=== PATIENT | male | born 1955 | race Two or more races ===

== ENCOUNTER 2016-09-19 14:55 | Emergency (ER) | payer BC, OTHER ==
[~2016-09-19] VITALS: Ht 175.3 cm; Wt 76.0 kg
[~2016-09-19 14:55] MED LIST: FAMO20TA18 PO; LORA-401 PO; OLAN15TA3 PO
[2016-09-19 14:57] VITALS: Ht 175.3 cm; Wt 76.0 kg
[2016-09-19] MEDS ORDERED: SIMV40TA2 PO (16:00)
[2016-09-19] MEDS ORDERED: ASPI-664 PO (16:01)
[2016-09-19] MEDS ORDERED: CITA20TA11 PO (16:01)
[2016-09-19] MEDS ORDERED: DICLOFENAC SODIUM 37.5 MG/ML VIAL IV STA (16:01)
[2016-09-19 16:14] LABS: ADD SCAN DIFF NO
[2016-09-19 16:15] LABS: BASOPHILS % 0.3 % (0.0-2.0); EOSINOPHILS # 0.1 10^3/ul (0.0-0.5); EOSINOPHILS % 1.2 % (0.0-7.0); HEMATOCRIT 49.3 % (42.0-52.0); HEMOGLOBIN 15.8 g/dl (14.0-18.0); LYMPHOCYTES # 2.4 10^3/ul (0.8-2.9); LYMPHOCYTES % 21.6 % (15.0-51.0); MEAN CORPUSCULAR HEMOGLOBIN 30.3 pg (29.0-33.0); MEAN CORPUSCULAR VOLUME 94.6 fl (82.0-101.0); MEAN PLATELET VOLUME 10.6 fl (7.4-10.4); MONOCYTE # 0.6 10^3/ul (0.3-0.9); MONOCYTES % 5.4 % (0.0-11.0); NEUTROPHILS % 71.1 % (39.0-77.0); PLATELET COUNT 219 10^3/UL (140-415); RED BLOOD COUNT 5.21 10^6/ul (4.70-6.10); RED CELL DISTRIBUTION WIDTH 13.7 % (11.5-14.5); WHITE BLOOD COUNT 11.2 10^3/ul (4.8-10.8)
[2016-09-19 16:19] LABS: CHLORIDE 103 mmol/L (97-110)
[2016-09-19 16:20] LABS: POTASSIUM 3.9 mmol/L (3.5-5.1); SODIUM 142 mmol/L (135-144)
[2016-09-19 16:22] LABS: CREATININE 0.91 mg/dl (0.61-1.24)
--- NOTE | 2016-09-19 16:22 | RADRPT ---
PROCEDURE: XR Chest. CLINICAL INDICATION: Chest pain. TECHNIQUE: Single frontal view. COMPARISON: 08/18/2012. FINDINGS: The lungs are clear. The heart size is normal. There is no pleural effusion. There is no pneumothorax. IMPRESSION: 1. Normal chest radiograph. RPTAT: QQ .Desean Estrella MD, MD Date Time Electronically viewed and signed by .Desean Estrella MD, on 09/19/2016 16:22 .R/
[2016-09-19 16:23] LABS: ANION GAP 15 (8-16); BLOOD UREA NITROGEN 16 mg/dl (7-20); CALCIUM 9.7 mg/dl (8.4-10.2); CARBON DIOXIDE 28 mmol/L (21-31); GLUCOSE 88 mg/dl (70-220)
[2016-09-19 16:35] LABS: TROPONIN-I < 0.012 ng/ml (0.00-0.12)
[2016-09-19 16:39] VITALS: BP 101/64; PULSE 70; RESP 17
[2016-09-19] MEDS ORDERED: IBUP800T25 PO (17:15)
--- NOTE | 2016-09-19 17:21 | ERD ---
ER Documentation Chief Complaint Date/Time DATE: 09/19/16 TIME: 17:16 Chief Complaint sharp pain @ left chest area since last night HPI This is a 61-year-old male who says he worked in the yard yesterday. He said last night he developed a sharp left anterior chest wall pain located at just lateral to the midclavicular line around rib 5 or 6. He said it was very hard to sleep last night because he could not lay on his left side because of the pain in the right side would cause pain as well. He said what made it better was laying flat on his back. Did not have any breathing problems no radiation of pain no diaphoresis. He said the pain began at 1:30 AM and lasted until around 6 6 AM when he finally fell asleep. He slept for a few hours and he woke up and the pain was still there but not as bad. He said he has had the pain all day long consistently but at a mild level. Patient's risk factors for coronary artery disease are high cholesterol and smoking. Currently he says he has no pain ROS All systems reviewed and are negative except as per history of present illness. Medications Home Meds Active Scripts Ibuprofen* (Motrin*) 800 Mg Tab, 800 MG PO Q6H Y for PAIN AND OR ELEVATED TEMP, #30 TAB Prov:NICHOLAS COSTELLO DO 09/19/16 Reported Medications Citalopram Hydrobromide* (Celexa*) 20 Mg Tablet, 20 MG PO DAILY, #30 TAB 09/19/16 Aspirin (Low Dose Aspirin) 81 Mg Tablet.dr, 81 MG PO DAILY, #30 TAB 09/19/16 Simvastatin* (Zocor*) 40 Mg Tablet, 40 MG PO QHS, #30 TAB 09/19/16 Olanzapine* (Zyprexa*) 15 Mg Tablet, 15 MG PO DAILY 08/19/12 Discontinued Reported Medications Famotidine* (Famotidine*) 20 Mg Tablet, 20 MG PO BID 08/19/12 Lorazepam* (Ativan*) 1 Mg Tablet, 1 MG PO BID 08/19/12 Allergies Allergies: Coded Allergies: No Known Allergy (Unverified , 09/19/16) PMhx/Soc Medical and Surgical Hx: pt denies Medical Hx, pt denies Surgical Hx History of Surgery: No Anesthesia Reaction: No Hx Neurological Disorder: No Hx Respiratory Disorders: No Hx Cardiac Disorders: No Hx Psychiatric Problems: No Hx Miscellaneous Medical Probl: No Hx Alcohol Use: No Hx Substance Use: No Hx Tobacco Use: Yes Smoking Status: Current every day smoker FmHx Family History: No coronary disease Physical Exam Vitals Vital Signs Date Time Temp Pulse Resp B/P Pulse Ox O2 Delivery O2 Flow Rate FiO2 09/19/16 16:39 70 17 101/64 98 Room Air 09/19/16 15:40 77 16 117/75 97 Room Air 09/19/16 14:57 98.1 83 18 111/74 98 Physical Exam Const: [Well-developed, well-nourished] Head: [Atraumatic, normocephalic] Eyes: [Normal Conjunctiva, PERRLA, EOMI, normal sclera, no nystagmus] ENT: [Normal External Ears, Nose and Mouth, moist mucus membranes.] Neck: [Full range of motion. No meningismus, no lymphadenopathy.] Resp: [Clear to auscultation bilaterally, no wheezing, rhonchi, rales] Cardio: [Regular rate and rhythm, no murmurs, S1 S2 present, there is complete reproducible chest pain to palpation at rib #5 just lateral to the midclavicular line. Palpation of this is quite sensitive and he says it is the same pain.] Abd: [Soft, non tender x 4, non distended. Normal bowel sounds, no guarding or rebound, no pulsitile abdominal masses or bruits] Skin: [No petechiae or rashes, no ecchymosis , no maculopapular rash] Back: [No midline or flank tenderness] Ext: [No cyanosis, or edema, FROM x 4, normal inspection, neurovascularly intact x 4] Neur: [Awake and alert, STR 5/5 x 4, sensation intact x 4, no focal findings, cerebellum intact] Psych: [Normal Mood and Affect] Result Diagram: 09/19/16 1600 09/19/16 1600 Results 24 hrs Laboratory Tests Test 09/19/16 16:00 White Blood Count 11.210^3/ul Red Blood Count 5.2110^6/ul Hemoglobin 15.8g/dl Hematocrit 49.3% Mean Corpuscular Volume 94.6fl Mean Corpuscular Hemoglobin 30.3pg Mean Corpuscular Hemoglobin Concent 32.0g/dl Red Cell Distribution Width 13.7% Platelet Count 44107^3/UL Mean Platelet Volume 10.6fl Neutrophils % 71.1% Lymphocytes % 21.6% Monocytes % 5.4% Eosinophils % 1.2% Basophils % 0.3% Nucleated Red Blood Cells % 0.0/100WBC Neutrophils # 8.010^3/ul Lymphocytes # 2.410^3/ul Monocytes # 0.610^3/ul Eosinophils # 0.110^3/ul Basophils # 0.010^3/ul Nucleated Red Blood Cells # 0.010^3/ul Sodium Level 142mmol/L Potassium Level 3.9mmol/L Chloride Level 103mmol/L Carbon Dioxide Level 28mmol/L Anion Gap 15 Blood Urea Nitrogen 16mg/dl Creatinine 0.91mg/dl Glucose Level 88mg/dl Calcium Level 9.7mg/dl Troponin I < 0.012ng/ml Current Medications Medications (Trade) Dose Ordered Sig/Jovani Route PRN Reason Start Time Stop Time Status Last Admin Dose Admin Diclofenac Sodium (Dyloject) 37.5 mg ONCE STAT IV 09/19/16 16:01 09/19/16 16:02 DC 09/19/16 16:18 Procedures/MDM EKG: Rate/Rhythm: [Normal Sinus Rhythm,NL intervals] QRS, ST, QT: NORMAL MA, QRS, QT] Impression: [NORMAL EKG] PROCEDURE: XR Chest. CLINICAL INDICATION: Chest pain. TECHNIQUE: Single frontal view. COMPARISON: 08/18/2012. FINDINGS: The lungs are clear. The heart size is normal. There is no pleural effusion. There is no pneumothorax. IMPRESSION: 1. Normal chest radiograph. RPTAT: QQ .Desean Estrella MD, MD Date Time Electronically viewed and signed by .Desean Estrella MD, on 09/19/2016 16:22 .R/ CC: NICHOLAS COSTELLO DO The patient's chest pain sounds clinically like chest wall pain. Patient worked in the yard yesterday and he is having some positional chest pain with worsening on his sides and better on his back. Same pain is reproducible with palpation. His cardiac workup is negative. According to the patient's history he had consistent chest pain for at least 12 hours with no elevation of troponin. Gave him strict cardiac warning signs to return in follow-up with his PCP Departure Diagnosis: Primary Impression: Chest wall pain Condition: Stable Patient Instructions: Chest Wall Strain NICHOLAS COSTELLO DO September 19, 2016 17:21
== END 2016-09-19 17:41 | disposition home or self-care (01) ==
LOC: E/R 14:55
DX: R07.89 Other chest pain (principal); R40.2252 Coma scale, best verbal response, oriented, at arrival to emergency department; F17.210 Nicotine dependence, cigarettes, uncomplicated; R40.2142 Coma scale, eyes open, spontaneous, at arrival to emergency department; R40.2362 Coma scale, best motor response, obeys commands, at arrival to emergency department; Z79.82 Long term (current) use of aspirin
CPT/HCPCS: 36415; 71010; 80048; 84484; 85025; 93005; 96374; Z7502; Z7610

== ENCOUNTER 2016-10-15 12:00 | Day surgery (SDC) | payer BC ==
[~2016-10-15] VITALS: Ht 172.7 cm; Wt 74.7 kg
[~2016-10-15 12:00] MED LIST changes: +ASPI-664 PO; +CITA20TA11 PO; -FAMO20TA18 PO; +IBUP800T25 PO; -LORA-401 PO; +SIMV40TA2 PO
[2016-10-15 12:33] VITALS: Ht 172.7 cm; Wt 74.7 kg
[2016-10-15 13:27] VITALS: BP 108/68; PULSE 78; RESP 18
[2016-10-15 15:45] VITALS: BP 111/76; PULSE 71; RESP 15
--- NOTE | 2016-10-15 16:37 | GILP ---
DATE OF PROCEDURE: 10/15/2016 PROCEDURE: 1. Colonoscopy with snare polypectomy. 2. Colonoscopy with biopsies and localization tattoo, 3. Colonoscopy with polyp ablation. PREMEDICATION: Monitored anesthesia care by anesthesiologist. SURGEON: Nicole Yeager MD. INSTRUMENT USED: Olympus colonoscope. PREPARATION: Adequate. TECHNIQUE: After informed consent, with the patient/relatives understanding the procedure, its indic ations potential risks and complications, including but not limited to: allergic reaction, bleeding, perforation, infection, missed lesions and after all pertinent questions were answered to the patie nt's satisfaction, the patient/relatives signed the witnessed informed consent. Following this, premedication was administered slowly IV push by under careful cardiovascular and re spiratory monitoring with pulse oximetry, automatic blood pressure and statement request clerk. Once the sedativ e effect was achieved, the patient was placed in the left lateral decubitus position, digital rectal examination was performed. The colonoscope was then introduced and advanced under visual control th roughout all segments of the colon including: the rectum, sigmoid, descending colon, splenic flexure , transverse colon, hepatic flexure, ascending colon and finally reaching the cecum which was clearl y identified by transillumination, finger indentation and the ileocecal valve. Careful examination o f the mucosa of the lower gastrointestinal tract both on insertion as well as withdrawal of the inst rument disclosed the following findings: Rectal Examination: No evidence of perirectal disease, no masses. Colonic Mucosa: Colonic Mucosa: The colonic mucosa is remarkable for multiple polyps in following o rder: A 3 mm polyp was noted in the rectum which was ablated with biopsy forceps. A 6 mm polyp was noted in the proximal ascending colon, was snared and retrieved. A 15 mm sessile polyp was noted in the proximal ascending colon, was judged to be not endoscopically removable. Bio psies were obtained and localization tattoo was applied. A 6 mm descending colon polyp was snared and retrieved and a 6 mm polyp in the rectum was snare and retrieved. Moderate size internal hemorrhoids are noted on withdrawal of the instrument. No additi onal abnormalities are noted. IMPRESSION: 1. A 3 mm rectal polyp, ablated. 2. A 6 mm proximal ascending colon polyp snared and retrieved. A 15 mm sessile polyp not endoscopi karma resectable in the proximal ascending colon, biopsied and localization tattoo applied. 3. A 6 mm polyp in the descending colon, snared and retrieved. 4. A 6 mm polyp in the rectum snared and retrieved. 5. Moderate sized internal hemorrhoids. PLAN: The patient will follow up as an outpatient. Pathology will be reviewed as soon as available . Unfortunately, the larger polyp in the proximal ascending colon will likely require surgical exci lourdes once adenomatous nature is confirmed. The patient should also have repeat colonoscopy within a year, given the number of polyps encountered today. Dictated By: NICOLE YEAGER MS/[place] Conf#: [id number] DID#: [id number] CC: NICOLE YEAGER;*EndCC*
[2016-10-16] MEDS ORDERED: OLAN10TA7 PO (00:21)
== END 2016-10-15 15:57 | disposition home or self-care (01) ==
LOC: GIL 12:00
PROVIDERS: ATTEND Internal Medicine Gastroenterology
DX: Z12.11 Encounter for screening for malignant neoplasm of colon (principal); D12.2 Benign neoplasm of ascending colon; D12.4 Benign neoplasm of descending colon; K62.1 Rectal polyp; F32.9 Major depressive disorder, single episode, unspecified
CPT/HCPCS: 45380; 45381; 45385; 88305; Z7610

== ENCOUNTER 2016-10-15 22:12 | Inpatient (IN) | payer BC ==
[~2016-10-15] VITALS: Ht 167.6 cm; Wt 82.9 kg
[2016-10-15] MEDS ORDERED: SODIUM CHLORIDE 0.9% 1L BAG IV* STA (23:08)
[2016-10-15 23:52] LABS: ADD SCAN DIFF NO
[2016-10-15 23:53] LABS: BASOPHILS % 0.2 % (0.0-2.0); EOSINOPHILS % 0.1 % (0.0-7.0); HEMATOCRIT 43.3 % (42.0-52.0); HEMOGLOBIN 14.8 g/dl (14.0-18.0); LYMPHOCYTES # 1.7 10^3/ul (0.8-2.9); LYMPHOCYTES % 9.2 % (15.0-51.0); MEAN CORPUSCULAR HEMOGLOBIN 30.7 pg (29.0-33.0); MEAN CORPUSCULAR HGB CONC 34.2 g/dl (32.0-37.0); MEAN CORPUSCULAR VOLUME 89.8 fl (82.0-101.0); MEAN PLATELET VOLUME 10.3 fl (7.4-10.4); MONOCYTE # 1.2 10^3/ul (0.3-0.9); MONOCYTES % 6.4 % (0.0-11.0); NEUTROPHIL # 15.3 10^3/ul (1.6-7.5); NEUTROPHILS % 83.5 % (39.0-77.0); PLATELET COUNT 246 10^3/UL (140-415); RED BLOOD COUNT 4.82 10^6/ul (4.70-6.10); RED CELL DISTRIBUTION WIDTH 13.2 % (11.5-14.5); WHITE BLOOD COUNT 18.3 10^3/ul (4.8-10.8)
[2016-10-16] VITALS (8 sets, daily range): BP systolic 84–104; BP diastolic 50–58; PULSE 63–77; RESP 18–20; TEMP 98.1; Ht 167.6 cm; Wt 82.9 kg
--- NOTE | 2016-10-16 00:02 | RADRPT ---
PROCEDURE: XR Chest. CLINICAL INDICATION: Sepsis. TECHNIQUE: Single frontal chest x-ray. COMPARISON: 09/19/2016 FINDINGS: The cardiomediastinal silhouette is unremarkable. There is no congestive heart failure.. No focal i nfiltrate is seen. There is no pleural effusion. There is no pneumothorax. There are degenerative changes of the thoracic spine.. IMPRESSION: 1. No active disease. RPTAT: HMVK .Jarvis Castro MD, MD Date Time Electronically viewed and signed by .Jarvis Castro MD, on 10/16/2016 00:02 .K/
[2016-10-16 00:09] LABS: INR 0.98
[2016-10-16 00:10] LABS: PARTIAL THROMBOPLASTIN TIME 35.7 Sec (25.0-35.0)
[2016-10-16 00:14] LABS: ALANINE AMINOTRANSFERASE 32 IU/L (13-69); ALBUMIN 4.6 g/dl (3.3-4.9); ALBUMIN/GLOBULIN RATIO 1.58; ALKALINE PHOSPHATASE 89 IU/L (42-121); ANION GAP 14 (8-16); ASPARTATE AMINO TRANSFERASE 25 IU/L (15-46); BILIRUBIN,INDIRECT 0.6 mg/dl (0-1.1); BILIRUBIN,TOTAL 0.6 mg/dl (0.2-1.3); BLOOD UREA NITROGEN 14 mg/dl (7-20); CALCIUM 9.2 mg/dl (8.4-10.2); CARBON DIOXIDE 22 mmol/L (21-31); CHLORIDE 104 mmol/L (97-110); CREATININE 0.91 mg/dl (0.61-1.24); GLUCOSE 107 mg/dl (70-220); POTASSIUM 3.9 mmol/L (3.5-5.1); SODIUM 136 mmol/L (135-144); TOTAL PROTEIN 7.5 g/dl (6.1-8.1)
[2016-10-16] MEDS ORDERED: OLAN10TA7 PO (00:21)
[2016-10-16 00:27] LABS: TROPONIN-I < 0.012 ng/ml (0.00-0.12)
[2016-10-16] MEDS ORDERED: SOD CHLORIDE 0.9% 100 ML ONE (00:46)
[2016-10-16] MEDS ORDERED: IOHEXOL 300MG/ML 150 ML BTL ONE (00:46)
--- NOTE | 2016-10-16 01:18 | RADRPT ---
PROCEDURE: CT Abdomen and pelvis with contrast. CLINICAL INDICATION: Abdominal pain. TECHNIQUE: CT scan of the abdomen and pelvis with contrast was performed on a multi-detector high -resolution CT scanner. The patient was scanned following the uncomplicated administration of 120 c c of Omnipaque 300 intravenous contrast. Coronal and sagittal reformatted images were obtained from the axial source images. Images were reviewed on a high-resolution PACS workstation. One or more of the following dose reduction techniques were used: - Automated exposure control. - Adjustment of the mA and/or kV according to patient size. - Use of iterative reconstruction technique. Exam CTD/vol = 10.04 mGy. Total exam DLP = 623.88 mGy-cm. COMPARISON: None. FINDINGS: Evaluation of the lung bases demonstrates mild bibasilar atelectasis. Abdomen: The liver is normal in size. There is no focal mass or dilatation of the biliary tree. T he gallbladder is not distended. The spleen, pancreas and bilateral adrenal glands are within felicia l limits. Bilateral kidneys are normal in size with symmetric enhancement. There are bilateral liang al cysts. There is minimal hydronephrosis bilaterally. There is no retroperitoneal adenopathy. Th e abdominal aorta is of normal caliber with scattered atherosclerotic calcifications. There is no abnormal bowel wall thickening or distension. There is no bowel obstruction or free air . A normal appendix is identified. There is no diverticulosis or diverticulitis. There is no asci gissel. Pelvis: The bladder is moderately distended and demonstrates mild wall thickening. The prostate an d seminal vesicles are within normal limits. There is no significant pelvic adenopathy or free flui d. Evaluation of the osseous structures demonstrates no suspicious lytic or blastic lesion. IMPRESSION: Moderately distended bladder and minimal bilateral hydronephrosis. Mild bladder wall thickening could suggest cystitis. Clinical correlation is needed. Mild bibasilar atelectasis. Vascular calcifications reflective of atherosclerosis. .Darion Ugarte MD, MD Date Time Electronically viewed and signed by .Darion Ugarte MD, MD on 10/16/2016 01:18 .T/
[2016-10-16 01:24] LABS: ADD UMIC NO; URINE BILIRUBIN (Dip) NEGATIVE (NEGATIVE); URINE BLOOD (Dip) NEGATIVE (NEGATIVE); URINE COLOR LT. YELLOW (YELLOW); URINE GLUCOSE (Dip) NEGATIVE (NEGATIVE); URINE KETONES (Dip) NEGATIVE (NEGATIVE); URINE LEUKOCYTE ESTERASE (Dip) NEGATIVE (NEGATIVE); URINE NITRITE (Dip) NEGATIVE (NEGATIVE); URINE TOTAL PROTEIN (Dip) NEGATIVE (NEGATIVE); URINE UROBILINOGEN (Dip) 0.2 E.U./dL (0.1-1.0)
[2016-10-16] MEDS ORDERED: CEFTRIAXONE 1 GM/50 ML (PMX) 50 ML IVPB ONE (02:00)
[2016-10-16] MEDS: SOD CHLORIDE 0.9% 1,000 ML IV SCH ×4 (02:09→15:45)
--- NOTE | 2016-10-16 02:12 | ERA ---
ER Documentation Chief Complaint Date/Time DATE: 10/16/16 TIME: 02:09 Chief Complaint FEVER BEGAN AT 6PM, COLONOSCOPY DONE TODAY, PRIMARY STATED FEVER COME TO ER HPI This is a 61-year-old male who presents to the emergency room for evaluation of a fever. The patient states that he did have a colonoscopy done today by Dr. roach and states that he was told to come to the emergency room if he developed fever. He states that around 6 PM tonight he developed fever and chills and some abdominal pain in the lower portion of the abdomen. The patient denies any bleeding from the rectum and came to the emergency room for further evaluation. The patient denies any radiation of the pain and denies any aggravating or relieving factors for his pain ROS All systems reviewed and are negative except as per history of present illness. Medications Home Meds Reported Medications Olanzapine* (Zyprexa*) 10 Mg Tablet, 10 MG PO DAILY, #30 TAB 10/16/16 Discontinued Reported Medications Citalopram Hydrobromide* (Celexa*) 20 Mg Tablet, 20 MG PO DAILY, #30 TAB 09/19/16 Aspirin (Low Dose Aspirin) 81 Mg Tablet.dr, 81 MG PO DAILY, #30 TAB 09/19/16 Simvastatin* (Zocor*) 40 Mg Tablet, 40 MG PO QHS, #30 TAB 09/19/16 Olanzapine* (Zyprexa*) 15 Mg Tablet, 15 MG PO DAILY 08/19/12 Discontinued Scripts Ibuprofen* (Motrin*) 800 Mg Tab, 800 MG PO Q6H Y for PAIN AND OR ELEVATED TEMP, #30 TAB Prov:NICHOLAS COSTELLO DO 09/19/16 Allergies Allergies: Coded Allergies: No Known Allergy (Unverified , 10/16/16) PMhx/Soc History of Surgery: No Anesthesia Reaction: No Hx Neurological Disorder: No Hx Respiratory Disorders: No Hx Cardiac Disorders: Yes (HIGH CHOL) Hx Psychiatric Problems: Yes (DEPRESSION) Hx Miscellaneous Medical Probl: No Hx Alcohol Use: No Hx Substance Use: No Hx Tobacco Use: Yes (INFREQ) Smoking Status: Current every day smoker Physical Exam Vitals Vital Signs Date Time Temp Pulse Resp B/P Pulse Ox O2 Delivery O2 Flow Rate FiO2 10/16/16 01:21 85 17 101/63 98 Room Air 10/15/16 23:38 99.9 87 17 103/68 100 Room Air 10/15/16 22:55 100.6 109 18 83/50 94 Physical Exam INITIAL VITAL SIGNS: Reviewed by me GENERAL: The patient is well developed and appropriate for usual state of health in no apparent distress HEENT: Pupils equal, round, and reactive to light. EOMI. There is no scleral icterus. NECK: C-spine is soft and supple, there is no meningismus. There is no cervical lymphadenopathy. LUNGS: Clear to auscultation bilaterally. There are no rales, wheezes or rhonchi. HEART: Tachycardic no murmurs, clicks, rubs or gallops. ABDOMEN: Mild suprapubic tenderness to palpation, soft, non-tender, non- distended. There are bowel sounds in all four quadrants. No rebound or guarding. EXTREMITIES: There is no peripheral cyanosis or edema. No focal swelling or erythema. NEUROLOGICAL: The patient moves all four extremities with 5/5 strength. Cranial nerves II - XII are intact. Normal gait. Alert and oriented SKIN: There is no apparent rash or petechiae. HEME/LYMPHATIC: There is no evidence of excessive bruising or lymphedema. PSYCHIATRIC: The patient does not appear anxious or depressed. Result Diagram: 10/15/16232410/15/162324 Results 24 hrs Laboratory Tests Test 10/15/16 23:25 10/15/16 23:55 White Blood Count 18.310^3/ul Red Blood Count 4.8210^6/ul Hemoglobin 14.8g/dl Hematocrit 43.3% Mean Corpuscular Volume 89.8fl Mean Corpuscular Hemoglobin 30.7pg Mean Corpuscular Hemoglobin Concent 34.2g/dl Red Cell Distribution Width 13.2% Platelet Count 02125^3/UL Mean Platelet Volume 10.3fl Neutrophils % 83.5% Lymphocytes % 9.2% Monocytes % 6.4% Eosinophils % 0.1% Basophils % 0.2% Nucleated Red Blood Cells % 0.0/100WBC Neutrophils # 15.310^3/ul Lymphocytes # 1.710^3/ul Monocytes # 1.210^3/ul Eosinophils # 0.010^3/ul Basophils # 0.010^3/ul Nucleated Red Blood Cells # 0.010^3/ul Prothrombin Time 13.0Sec Prothrombin Time Ratio 1.0 INR International Normalized Ratio 0.98 Activated Partial Thromboplast Time 35.7Sec Sodium Level 136mmol/L Potassium Level 3.9mmol/L Chloride Level 104mmol/L Carbon Dioxide Level 22mmol/L Anion Gap 14 Blood Urea Nitrogen 14mg/dl Creatinine 0.91mg/dl Glucose Level 107mg/dl Lactic Acid Level 1.0mmol/L Calcium Level 9.2mg/dl Total Bilirubin 0.6mg/dl Direct Bilirubin 0.00mg/dl Indirect Bilirubin 0.6mg/dl Aspartate Amino Transf (AST/SGOT) 25IU/L Alanine Aminotransferase (ALT/SGPT) 32IU/L Alkaline Phosphatase 89IU/L Troponin I < 0.012ng/ml Total Protein 7.5g/dl Albumin 4.6g/dl Globulin 2.90g/dl Albumin/Globulin Ratio 1.58 Urine Color LT. YELLOW Urine Clarity CLEAR Urine pH 6.0 Urine Specific [place] <=1.005 Urine Ketones NEGATIVE Urine Nitrite NEGATIVE Urine Bilirubin NEGATIVE Urine Urobilinogen 0.2 E.U./dL Urine Leukocyte Esterase NEGATIVE Urine Hemoglobin NEGATIVE Urine Glucose NEGATIVE% Urine Total Protein NEGATIVE Current Medications Medications (Trade) Dose Ordered Sig/Jovani Route PRN Reason Start Time Stop Time Status Last Admin Dose Admin Sodium Chloride (NS) 2,310 ml BOLUS OVER 2 HOURS STAT IV* 10/15/16 23:08 10/15/16 23:10 DC 10/15/16 23:37 IV Flush 10 ml 10 ml STK-MED ONCE .ROUTE 10/16/16 00:46 10/16/16 00:47 DC 10/16/16 01:00 Sodium Chloride (NS) 100 ml @ ud STK-MED ONCE .ROUTE 10/16/16 00:46 10/16/16 00:47 DC 10/16/16 01:00 Iohexol 150 ml 150 ml STK-MED ONCE .ROUTE 10/16/16 00:46 10/16/16 00:47 DC 10/16/16 01:00 Ceftriaxone Sodium 50 ml @ 100 mls/hr ONCE ONCE IVPB 10/16/16 02:00 10/16/16 02:29 Sodium Chloride (NS) 1,000 ml @ 80 mls/hr [id number] IV 10/16/16 02:03 10/16/16 14:32 Ondansetron HCl (Zofran Inj) 4 mg BRIDGE ORDER PRN IV NAUSEA AND/OR VOMITING 10/16/16 02:30 10/17/16 02:29 Acetaminophen (Tylenol Tab) 650 mg ER BRIDGE PRN PO MILD PAIN/FEVER 10/16/16 02:30 10/17/16 02:29 Procedures/MDM EKG: Rate/Rhythm: [Normal Sinus Rhythm] QRS, ST, T-waves: [No changes consistent w/ acute ischemia] Impression: [No evidence of ischemia or arrhythmia] Chest X-ray 1V Interpreted by me: Soft Tissue: No acute abnormalities Bones: No acute abnormalities Mediastinum/Cardiac Silhouette/Lungs: [No acute abnormalities] CT abdomen pelvis without: Moderately distended bladder and minimal bilateral hydronephrosis. Mild bladder wall thickening could suggest cystitis. Clinical correlation is needed. Mild bibasilar atelectasis. Vascular calcifications reflective of atherosclerosis. This 61-year-old male presents to the emergency room for evaluation of fever. This patient did have a colonoscopy done today by Dr. roach. When I evaluated him he was febrile tachycardic. A septic workup was started and the patient did undergo a CAT scan which revealed mild bladder wall thickening suggesting cystitis. He did have some suprapubic tenderness to palpation on my examination. Although his urinalysis does not reveal any white blood cells at this time the patient was given Rocephin, and urine culture was obtained. The patient will be placed in for admission at this time for evaluation and she does meet sepsis criteria. He was given 30 cc/kg of IV normal saline and no need for vasopressors as his mean arterial pressures greater than 65. This patient will be placed in for admission under the care of Dr. kenyon on [facility] floor at this time. Critical Care: Time: 38 minutes Treatments/Evaluations: Close monitoring and treatment of unstable vital signs, cardiorespiratory, and neurologic status, while maintaining tight balance of fluid, respiratory, and cardiac interventions. Smoking Cessation Therapy: Pt. was lectured for greater than 3 minutes on the health risks of continued smoking and the benefits of cessation. Departure Diagnosis: Primary Impression: Sepsis Additional Impressions: Cystitis Tobacco use Condition: Stable AUBRIE FIGUEROA DO Oct 16, 2016 02:12
[2016-10-16] MEDS ORDERED: ACETAMINOPHEN 500 MG TAB PO ONE (02:14)
[2016-10-16] MEDS ORDERED: ACETAMINOPHEN 325 MG TAB PO PRN ×2 (02:30→05:30)
[2016-10-16] MEDS ORDERED: ONDANSETRON 4 MG INJ IV PRN ×2 (02:30→05:30)
[2016-10-16] MEDS ORDERED: morphine 2 MG INJ IV PRN (05:30)
[2016-10-16] MEDS: PANTOPRAZOLE (EC) 40 MG TAB PO SCH (05:48)
[2016-10-16] MEDS: PIPER-TAZO 3.375 GM IV (PMX) 100 ML IVPB SCH ×4 (05:48→23:56)
--- NOTE | 2016-10-16 10:06 | HP ---
DATE OF ADMISSION: 10/16/2016 CHIEF COMPLAINT: Fever. HISTORY OF PRESENT ILLNESS: The patient is a 61-year-old gentleman with a history of anxiety and de pression, for which he has been taking Zyprexa. The details of his psychiatric condition are not kn own. Patient also used to take medication for cholesterol, but he has not been taking it for 1 austin h. The patient was seen by Dr. Yeager for screening colonoscopy yesterday and underwent multiple po lypectomies. The patient was sent home; however, the patient returned to ER with a fever. No recta l bleed, no reported dysuria or hematuria. No reported abdominal pain. No reported headache, dizzi ness or syncope. No history of chest pain or shortness of breath. The patient did have fever and c hills prior to coming to the hospital. In the ER he did report some abdominal discomfort in the low er portion, although currently he is pain free. Since morning the patient has not had any temperatu re spikes, although he did drop his blood pressure into the 80s. The patient is getting IV fluids. The patient remains awake, alert, and had normal renal function upon arrival. Multiple lactic acid levels were normal; however, due to a white count of 18.3, the patient was admitted for further bridgett luation and management. REVIEW OF SYSTEMS: The rest of review of systems is unremarkable. PAST SURGICAL HISTORY: None. ALLERGIES: NONE. SOCIAL HISTORY: The patient smokes a pack per day. No history of alcohol abuse. FAMILY HISTORY: Noncontributory. PHYSICAL EXAMINATION: GENERAL: The patient is conscious, awake, alert. VITAL SIGNS: In the ER temperature of 100.6, pulse 109, respirations 18, blood pressure 83/50, O2 saturation 94% on room air. HEENT: Conjunctivae and lids are normal. Oropharynx is clear. NECK: Supple. No mass, no thyromegaly. CHEST: Fairly clear. CARDIOVASCULAR: S1, S2 normal. No murmur. ABDOMEN: Soft, nondistended, nontender. Bowel sounds present. EXTREMITIES: No leg edema. NEUROLOGIC: The patient is awake, alert, fairly oriented, with no gross focal deficits. LABORATORY: WBC 18.3, hemoglobin 14.8, platelets 246. Sodium 136, potassium 3.9, BUN 14, creatinin e 0.9. Liver enzymes normal. The patient did undergo a CT of the abdomen and pelvis, which revealed a moderately distended bladde r and minimal bilateral hydronephrosis. Mild bladder wall thickening, could suggest cystitis, altho ugh UA is unremarkable. Vascular calcifications reflective of arthrosclerosis. IMPRESSION: 1. Fever after colonoscopy. 2. History of anxiety and depression. 3. History of dyslipidemia. PLAN: Patient is admitted on the medical floor. The patient will be started on IV Zosyn for sympto matic treatment. Will use Lovenox for DVT prophylaxis and Protonix for GI prophylaxis. Will notify Dr. Yeager. Will obtain followup labs. Continue IV fluids. Plan of care discussed with the patie nt's son. Dictated By: TIMMY FAROOQ/[place] Conf#: [id number] DID#: [id number]
[2016-10-16] MEDS: ENOXAPARIN 40 MG/0.4 ML SYG SC SCH (10:13)
[2016-10-16] MEDS ORDERED: OLANZAPINE 5 MG TAB PO SCH (10:30)
[2016-10-16] MEDS ORDERED: metroNIDAZOLE 500 MG/NS (PMX) 100 ML IVPB SCH (14:00)
--- NOTE | 2016-10-16 16:33 | CONS ---
Date/Time of Note Date/Time of Note DATE: 10/16/16 TIME: 16:23 Assessment/Plan Assessment/Plan Additional Assessment/Plan Assessment: Fever post colonoscopy/no evidence of colonic pathology Rule out bacteremia related to procedure Rule out urinary tract infection Leukocytosis/likely related to above Thickened bladder and mild hydronephrosis on CT Consider urology evaluation History of anxiety/depression/psychiatric illness Plan: Continue present regimen Consider urology evaluation Await cultures Consultation Date/Type/Reason Admit Date/Time Oct 16, 2016 at 02:04 Date of Consultation: Oct 16, 2016 Type of Consultation: GI Reason for Consultation Fever post colonoscopy Hx of Present Illness 61-year-old male who was evaluated yesterday 10/15/2016 with screening colonoscopy was found to have 5 relatively small polyps largest 6 mm were removed and one additional larger polyp approximately 15 mm that was biopsied localization to tube was applied. The patient was discharge in good condition with no symptoms whatsoever. I received a call around 9:30 PM last night from the patient's son stating that his father had temperature 102, he had no significant abdominal pain or any other gastrointestinal symptomatology. In view of the recent colonoscopy advised for him to be taken urgently to the emergency room for further evaluation. The patient was seen in the emergency room was found to have significant leukocytosis and fever, a CT of the abdomen disclosed no evidence of free air or any abnormalities that may represent complication of a colonoscopy. The bladder appeared to be thickened with slight hydronephrosis raise the question of cystitis, urinalysis however was negative. The patient was started on antibiotics and hospitalized. This morning the patient appears comfortable again denies any gastrointestinal symptoms, he is tolerating a full regular diet without difficulties. He is fever has subsided he has remained somewhat hypotensive but he is alert, oriented and not lightheaded or symptomatic at all. Patient states his blood pressure tends to be low but not this low. I again spoke with the patient's son and explained the possibility of bacteremia related to colonoscopy which is a very unusual circumstance but one that may be responsible for the patient's presentation, alternatively a urinary tract process may be considered as well. At any rate the patient appears to be responded to antibiotics and I would recommend we continue present regimen. The pathology of the polyps removed is pending at this time. Constitutional: improved, no complaints Eyes: no complaints ENT: no complaints Respiratory: no complaints Cardiovascular: no complaints Gastrointestinal: no complaints Genitourinary: no complaints Musculoskeletal: no complaints Skin: no complaints Neurologic: no complaints Endocrine: no complaints Lymphatic: no complaints Psychological: nl mood/affect, no complaints Immunologic: no complaints Past Medical History Medical History: other (Anxiety/depression/psychiatric illness) Past Surgical History Past Surgical Hx: no surgical history Family History Significant Family History: no pertinent family hx Social History Alcohol Use: rarely Smoking Status: Former smoker Drug Use: none Exam/Review of Systems Vital Signs Vitals Vital Signs Date Time Temp Pulse Resp B/P Pulse Ox O2 Delivery O2 Flow Rate FiO2 10/16/16 15:06 70 94/55 10/16/16 08:29 97.7 20 95 10/16/16 03:13 Room Air Intake and Output 10/15/16 10/15/16 10/16/16 15:00 23:00 07:00 Intake Total 450 ml Balance 450 ml Exam Constitutional: alert, oriented, well developed Psych: nl mood/affect, no complaints Head: atraumatic, normocephalic Eyes: EOMI, PERRL, nl conjunctiva, nl lids, nl sclera ENMT: nl external ears & nose, nl lips & teeth, nl nasal mucosa & septum Neck: non-tender, supple Respiratory: clear to auscultation, normal air movement Cardiovascular: nl pulses, regular rate and rhythm Gastrointestinal: nl liver, spleen, non-tender, soft Musculoskeletal: nl extremities to inspection Extremities: normal pulses Skin: nl turgor, No rash or lesions Lymph: nl lymph nodes Results Result Diagram: 10/15/16 4892 10/15/16 2325 Results 24 hrs Laboratory Tests Test 10/15/16 23:25 10/15/16 23:55 10/16/16 01:50 10/16/16 05:05 White Blood Count 18.3 #H Red Blood Count 4.82 Hemoglobin 14.8 Hematocrit 43.3 Mean Corpuscular Volume 89.8 Mean Corpuscular Hemoglobin 30.7 Mean Corpuscular Hemoglobin Concent 34.2 Red Cell Distribution Width 13.2 Platelet Count 246 Mean Platelet Volume 10.3 Neutrophils % 83.5 H Lymphocytes % 9.2 L Monocytes % 6.4 Eosinophils % 0.1 Basophils % 0.2 Nucleated Red Blood Cells % 0.0 Neutrophils # 15.3 H Lymphocytes # 1.7 Monocytes # 1.2 H Eosinophils # 0.0 Basophils # 0.0 Nucleated Red Blood Cells # 0.0 Prothrombin Time 13.0 Prothrombin Time Ratio 1.0 INR International Normalized Ratio 0.98 Activated Partial Thromboplast Time 35.7 H Sodium Level 136 Potassium Level 3.9 Chloride Level 104 Carbon Dioxide Level 22 Anion Gap 14 Blood Urea Nitrogen 14 Creatinine 0.91 Glucose Level 107 Lactic Acid Level 1.0 0.8 1.9 Calcium Level 9.2 Total Bilirubin 0.6 Direct Bilirubin 0.00 Indirect Bilirubin 0.6 Aspartate Amino Transf (AST/SGOT) 25 Alanine Aminotransferase (ALT/SGPT) 32 Alkaline Phosphatase 89 Troponin I < 0.012 Total Protein 7.5 Albumin 4.6 Globulin 2.90 Albumin/Globulin Ratio 1.58 Urine Color LT. YELLOW Urine Clarity CLEAR Urine pH 6.0 Urine Specific Buckner <=1.005 L Urine Ketones NEGATIVE Urine Nitrite NEGATIVE Urine Bilirubin NEGATIVE Urine Urobilinogen 0.2 E.U./dL Urine Leukocyte Esterase NEGATIVE Urine Hemoglobin NEGATIVE Urine Glucose NEGATIVE Urine Total Protein NEGATIVE Medications Medications Current Medications Piperacillin Sod/ Tazobactam Sod (Zosyn 3.375gm/ 100 ml (Pmx)) 100 ml @ 200 mls /hr Q6 IVPB Last administered on 10/16/16 11:45; Admin Dose 200 MLS/HR; Start 10/16/16 at 06:00 Enoxaparin Sodium (Lovenox) 40 mg DAILY SC Last administered on 10/16/16 10:13 ; Admin Dose 40 MG; Start 10/16/16 at 09:00 Ondansetron HCl (Zofran Inj) 4 mg Q6H PRN IV NAUSEA AND/OR VOMITING; Start 10/16 at 05:30 Morphine Sulfate (morphine) 2 mg Q4H PRN IV PAIN; Start 10/16/16 at 05:30 Acetaminophen (Tylenol Tab) 650 mg Q6H PRN PO PAIN AND OR ELEVATED TEMP; Start 10/16/16 at 05:30 Pantoprazole 40 mg 40 mg DAILY@06 PO Last administered on 10/16/16 05:48; Admin Dose 40 MG; Start 10/16/16 at 06:00 Sodium Chloride (NS) 1,000 ml @ 100 mls/hr Q10H IV Last administered on 15:45; Admin Dose 100 MLS/HR; Start 10/16/16 at 05:30 Olanzapine (Zyprexa) 10 mg HS PO ; Start 10/16/16 at 21:00 ANNIE VALLE MD Oct 16, 2016 16:33
[2016-10-16] MEDS: OLANZAPINE 5 MG TAB PO SCH (22:02)
[2016-10-17] MEDS: SOD CHLORIDE 0.9% 1,000 ML IV SCH ×2 (02:02→12:31)
[2016-10-17] MEDS: PIPER-TAZO 3.375 GM IV (PMX) 100 ML IVPB SCH ×3 (05:57→18:18)
[2016-10-17] MEDS: PANTOPRAZOLE (EC) 40 MG TAB PO SCH (05:57)
[2016-10-17 06:03] LABS: ADD SCAN DIFF NO
[2016-10-17 06:10] LABS: BASOPHILS % 0.3 % (0.0-2.0); EOSINOPHILS # 0.2 10^3/ul (0.0-0.5); EOSINOPHILS % 2.4 % (0.0-7.0); HEMATOCRIT 38.7 % (42.0-52.0); HEMOGLOBIN 12.6 g/dl (14.0-18.0); LYMPHOCYTES # 3.9 10^3/ul (0.8-2.9); LYMPHOCYTES % 38.9 % (15.0-51.0); MEAN CORPUSCULAR HEMOGLOBIN 30.4 pg (29.0-33.0); MEAN CORPUSCULAR HGB CONC 32.6 g/dl (32.0-37.0); MEAN CORPUSCULAR VOLUME 93.5 fl (82.0-101.0); MEAN PLATELET VOLUME 10.4 fl (7.4-10.4); MONOCYTE # 0.7 10^3/ul (0.3-0.9); MONOCYTES % 7.5 % (0.0-11.0); NEUTROPHILS % 50.6 % (39.0-77.0); PLATELET COUNT 223 10^3/UL (140-415); RED BLOOD COUNT 4.14 10^6/ul (4.70-6.10); RED CELL DISTRIBUTION WIDTH 13.9 % (11.5-14.5); WHITE BLOOD COUNT 9.9 10^3/ul (4.8-10.8)
[2016-10-17 06:30] LABS: ALBUMIN 3.6 g/dl (3.3-4.9); ALBUMIN/GLOBULIN RATIO 1.44; BILIRUBIN,INDIRECT 0.3 mg/dl (0-1.1); BILIRUBIN,TOTAL 0.3 mg/dl (0.2-1.3); CALCIUM 8.4 mg/dl (8.4-10.2); CREATININE 1.01 mg/dl (0.61-1.24); POTASSIUM 3.7 mmol/L (3.5-5.1); TOTAL PROTEIN 6.1 g/dl (6.1-8.1)
[2016-10-17 08:02] VITALS: BP 109/53; RESP 16
[2016-10-17] MEDS: ENOXAPARIN 40 MG/0.4 ML SYG SC SCH (08:29)
--- NOTE | 2016-10-17 09:19 | PN ---
Date/Time of Note Date/Time of Note DATE: 10/17/16 TIME: 09:14 Assessment/Plan VTE Prophylaxis VTE Prophylaxis Intervention: SCD's Lines/Catheters IV C[facility]ter Type (from [facility] Peripheral IV Urinary Cath still in place: No Assessment/Plan Chief Complaint/Hosp Course 61-year-old male who was evaluated yesterday 10/15/2016 with screening colonoscopy was found to have 5 relatively small polyps largest 6 mm were removed and one additional larger polyp approximately 15 mm that was biopsied localization to tube was applied. The patient was discharge in good condition with no symptoms whatsoever. I received a call around 9:30 PM last night from the patient's son stating that his father had temperature 102, he had no significant abdominal pain or any other gastrointestinal symptomatology. In view of the recent colonoscopy advised for him to be taken urgently to the emergency room for further evaluation. The patient was seen in the emergency room was found to have significant leukocytosis and fever, a CT of the abdomen disclosed no evidence of free air or any abnormalities that may represent complication of a colonoscopy. The bladder appeared to be thickened with slight hydronephrosis raise the question of cystitis, urinalysis however was negative. The patient was started on antibiotics and hospitalized. This morning the patient appears comfortable again denies any gastrointestinal symptoms, he is tolerating a full regular diet without difficulties. He is fever has subsided he has remained somewhat hypotensive but he is alert, oriented and not lightheaded or symptomatic at all. Patient states his blood pressure tends to be low but not this low. I again spoke with the patient's son and explained the possibility of bacteremia related to colonoscopy which is a very unusual circumstance but one that may be responsible for the patient's presentation, alternatively a urinary tract process may be considered as well. At any rate the patient appears to be responded to antibiotics and I would recommend we continue present regimen. The pathology of the polyps removed is pending at this time. Colonoscopy 2016 IMPRESSION: 1. A 3 mm rectal polyp, ablated. 2. A 6 mm proximal ascending colon polyp snared and retrieved. A 15 mm sessile polyp not endoscopically resectable in the proximal ascending colon, biopsied and localization tattoo applied. 3. A 6 mm polyp in the descending colon, snared and retrieved. 4. A 6 mm polyp in the rectum snared and retrieved. 5. Moderate sized internal hemorrhoids. Problems: Assessment/Plan Assessment: Fever post colonoscopy/no evidence of colonic pathology Probable transient bacteremia related to colonoscopy/polypectomy Rule out urinary tract infection Leukocytosis/likely related to above Thickened bladder and mild hydronephrosis on CT Consider urology evaluation History of anxiety/depression/psychiatric illness Asymptomatic? Hypotension/questionable clinical significance Plan: Continue present regimen Complete 7 day antibiotic course GI rivera he appears to be safe for possible discharge Consider urology evaluation Await cultures Subjective 24 Hr Interval Summary Free Text/Dictation Course reviewed with nursing staff Patient interviewed and examined Denies any abdominal pain, tolerating diet without difficulties No further episodes of fever White blood cell count back to normal Blood pressure remains in the low range systolic around 100 but the patient is entirely asymptomatic Colonoscopy results were reviewed again with the patient's family Colonoscopy 10/15/2016 IMPRESSION: 1. A 3 mm rectal polyp, ablated. 2. A 6 mm proximal ascending colon polyp snared and retrieved. A 15 mm sessile polyp not endoscopically resectable in the proximal ascending colon, biopsied and localization tattoo applied. Will require surgical excision if adenomatous in nature 3. A 6 mm polyp in the descending colon, snared and retrieved. 4. A 6 mm polyp in the rectum snared and retrieved. 5. Moderate sized internal hemorrhoids. Exam/Review of Systems Vital Signs Vitals Vital Signs Date Time Temp Pulse Resp B/P Pulse Ox O2 Delivery O2 Flow Rate FiO2 10/17/16 08:02 97.6 66 16 109/53 96 10/16/16 03:13 Room Air Intake and Output 10/16/16 10/16/16 10/17/16 15:00 23:00 07:00 Intake Total 100 ml 2360 ml 2940 ml Output Total 700 ml Balance 100 ml 2360 ml 2240 ml Exam Constitutional: alert, oriented, well developed Psych: nl mood/affect, no complaints Head: atraumatic, normocephalic Eyes: EOMI, PERRL, nl conjunctiva, nl lids, nl sclera ENMT: nl external ears & nose, nl lips & teeth, nl nasal mucosa & septum Neck: non-tender, supple Respiratory: clear to auscultation, normal air movement Cardiovascular: nl pulses, regular rate and rhythm Gastrointestinal: nl liver, spleen, non-tender, soft Musculoskeletal: nl extremities to inspection Extremities: normal pulses Skin: nl turgor, No rash or lesions Lymph: nl lymph nodes Results Result Diagram: 10/17/16 0510/17/16 0533 Results 24 hrs Laboratory Tests Test 10/17/16 05:33 White Blood Count 9.9 # Red Blood Count 4.14 L Hemoglobin 12.6 L Hematocrit 38.7 L Mean Corpuscular Volume 93.5 Mean Corpuscular Hemoglobin 30.4 Mean Corpuscular Hemoglobin Concent 32.6 Red Cell Distribution Width 13.9 Platelet Count 223 Mean Platelet Volume 10.4 Neutrophils % 50.6 Lymphocytes % 38.9 Monocytes % 7.5 Eosinophils % 2.4 Basophils % 0.3 Nucleated Red Blood Cells % 0.0 Neutrophils # 5.0 Lymphocytes # 3.9 H Monocytes # 0.7 Eosinophils # 0.2 Basophils # 0.0 Nucleated Red Blood Cells # 0.0 Sodium Level 144 Potassium Level 3.7 Chloride Level 113 H Carbon Dioxide Level 24 Anion Gap 11 Blood Urea Nitrogen 8 Creatinine 1.01 Glucose Level 97 Calcium Level 8.4 Total Bilirubin 0.3 Direct Bilirubin 0.00 Indirect Bilirubin 0.3 Aspartate Amino Transf (AST/SGOT) 17 Alanine Aminotransferase (ALT/SGPT) 28 Alkaline Phosphatase 67 Total Protein 6.1 # Albumin 3.6 # Globulin 2.50 Albumin/Globulin Ratio 1.44 Medications Medications Current Medications Piperacillin Sod/ Tazobactam Sod (Zosyn 3.375gm/ 100 ml (Pmx)) 100 ml @ 200 mls /hr Q6 IVPB Last administered on 10/17/16 05:57; Admin Dose 200 MLS/HR; Start 10/16/16 at 06:00 Enoxaparin Sodium (Lovenox) 40 mg DAILY SC Last administered on 10/17/16 08:29 ; Admin Dose 40 MG; Start 10/16/16 at 09:00 Ondansetron HCl (Zofran Inj) 4 mg Q6H PRN IV NAUSEA AND/OR VOMITING; Start 10/16 at 05:30 Morphine Sulfate (morphine) 2 mg Q4H PRN IV PAIN; Start 10/16/16 at 05:30 Acetaminophen (Tylenol Tab) 650 mg Q6H PRN PO PAIN AND OR ELEVATED TEMP; Start 10/16/16 at 05:30 Pantoprazole 40 mg 40 mg DAILY@06 PO Last administered on 6/4/17at 05:57; Admin Dose 40 MG; Start 10/16/16 at 06:00 Sodium Chloride (NS) 1,000 ml @ 100 mls/hr Q10H IV Last administered on 02:02; Admin Dose 100 MLS/HR; Start 10/16/16 at 05:30 Olanzapine (Zyprexa) 10 mg HS PO Last administered on 10/16/16 22:02; Admin Dose 10 MG; Start 10/16/16 at 21:00 ANNIE VALLE MD Oct 17, 2016 09:19
--- NOTE | 2016-10-17 12:14 | PN ---
Date/Time of Note Date/Time of Note DATE: 10/17/16 TIME: 12:09 Assessment/Plan VTE Prophylaxis VTE Prophylaxis Intervention: LMWH Lines/Catheters IV Catheter Type (from [facility]): Peripheral IV Urinary Cath still in place: No Assessment/Plan Assessment/Plan - Edema right hand- elevate Right hand- no erythema/pain . monitor - if cont , will do doppler to r/o dvt - Mild bilateral hydronephrosis and bladder wall thickening - will do urology consult- Dr Toth notified. - Fever after colonoscopy - per Dr. Yeager. - IV Zosyn for symptomatic treatment - urine/blood c/s - no growth so far. - IV fluids. - History of anxiety and depression. - History of dyslipidemia. - Lovenox for DVT prophylaxis - Protonix for GI prophylaxis. Plan of care discussed with Dr Benson/staff. Exam/Review of Systems Vital Signs Vitals Vital Signs Date Time Temp Pulse Resp B/P Pulse Ox O2 Delivery O2 Flow Rate FiO2 10/17/16 08:02 97.6 66 16 109/53 96 10/16/16 03:13 Room Air Intake and Output 10/16/16 10/16/16 10/17/16 15:00 23:00 07:00 Intake Total 100 ml 2360 ml 2940 ml Output Total 700 ml Balance 100 ml 2360 ml 2240 ml Exam Constitutional: alert Neck: non-tender, supple Cardiovascular: nl pulses, regular rate and rhythm Gastrointestinal: soft, tender Musculoskeletal: nl extremities to inspection Extremities: normal pulses Neurological: nl speech Skin: other Lymph: nontender Results Result Diagram: 10/17/16 0533 10/17/16 0533 Results 24 hrs Laboratory Tests Test 10/17/16 05:33 White Blood Count 9.9 # Red Blood Count 4.14 L Hemoglobin 12.6 L Hematocrit 38.7 L Mean Corpuscular Volume 93.5 Mean Corpuscular Hemoglobin 30.4 Mean Corpuscular Hemoglobin Concent 32.6 Red Cell Distribution Width 13.9 Platelet Count 223 Mean Platelet Volume 10.4 Neutrophils % 50.6 Lymphocytes % 38.9 Monocytes % 7.5 Eosinophils % 2.4 Basophils % 0.3 Nucleated Red Blood Cells % 0.0 Neutrophils # 5.0 Lymphocytes # 3.9 H Monocytes # 0.7 Eosinophils # 0.2 Basophils # 0.0 Nucleated Red Blood Cells # 0.0 Sodium Level 144 Potassium Level 3.7 Chloride Level 113 H Carbon Dioxide Level 24 Anion Gap 11 Blood Urea Nitrogen 8 Creatinine 1.01 Glucose Level 97 Calcium Level 8.4 Total Bilirubin 0.3 Direct Bilirubin 0.00 Indirect Bilirubin 0.3 Aspartate Amino Transf (AST/SGOT) 17 Alanine Aminotransferase (ALT/SGPT) 28 Alkaline Phosphatase 67 Total Protein 6.1 # Albumin 3.6 # Globulin 2.50 Albumin/Globulin Ratio 1.44 Medications Medications Current Medications Piperacillin Sod/ Tazobactam Sod (Zosyn 3.375gm/ 100 ml (Pmx)) 100 ml @ 200 mls /hr Q6 IVPB Last administered on 10/17/16 05:57; Admin Dose 200 MLS/HR; Start 10/16/16 at 06:00 Enoxaparin Sodium (Lovenox) 40 mg DAILY SC Last administered on 10/17/16 08:29 ; Admin Dose 40 MG; Start 10/16/16 at 09:00 Ondansetron HCl (Zofran Inj) 4 mg Q6H PRN IV NAUSEA AND/OR VOMITING; Start 10/16 at 05:30 Morphine Sulfate (morphine) 2 mg Q4H PRN IV PAIN; Start 10/16/16 at 05:30 Acetaminophen (Tylenol Tab) 650 mg Q6H PRN PO PAIN AND OR ELEVATED TEMP; Start 10/16/16 at 05:30 Pantoprazole 40 mg 40 mg DAILY@06 PO Last administered on 10/17/16 05:57; Admin Dose 40 MG; Start 10/16/16 at 06:00 Sodium Chloride (NS) 1,000 ml @ 100 mls/hr Q10H IV Last administered on 02:02; Admin Dose 100 MLS/HR; Start 10/16/16 at 05:30 Olanzapine (Zyprexa) 10 mg HS PO Last administered on 10/16/16 22:02; Admin Dose 10 MG; Start 10/16/16 at 21:00 KHADIJAH SLOAN Oct 17, 2016 12:14
[2016-10-17 18:23] VITALS: BP 119/67; PULSE 72
[2016-10-17 20:23] VITALS: BP 116/61; RESP 18
[2016-10-17] MEDS: OLANZAPINE 5 MG TAB PO SCH (21:12)
[2016-10-18] MEDS: PIPER-TAZO 3.375 GM IV (PMX) 100 ML IVPB SCH ×4 (00:03→17:45)
[2016-10-18 05:40] LABS: ADD SCAN DIFF NO
[2016-10-18 05:48] LABS: BASOPHILS % 0.4 % (0.0-2.0); EOSINOPHILS # 0.3 10^3/ul (0.0-0.5); EOSINOPHILS % 2.9 % (0.0-7.0); HEMATOCRIT 39.5 % (42.0-52.0); LYMPHOCYTES # 3.8 10^3/ul (0.8-2.9); LYMPHOCYTES % 39.4 % (15.0-51.0); MEAN CORPUSCULAR HEMOGLOBIN 30.7 pg (29.0-33.0); MEAN CORPUSCULAR HGB CONC 32.9 g/dl (32.0-37.0); MEAN CORPUSCULAR VOLUME 93.4 fl (82.0-101.0); MEAN PLATELET VOLUME 10.4 fl (7.4-10.4); MONOCYTE # 0.8 10^3/ul (0.3-0.9); NEUTROPHIL # 4.7 10^3/ul (1.6-7.5); NEUTROPHILS % 48.9 % (39.0-77.0); PLATELET COUNT 250 10^3/UL (140-415); RED BLOOD COUNT 4.23 10^6/ul (4.70-6.10); RED CELL DISTRIBUTION WIDTH 13.9 % (11.5-14.5); WHITE BLOOD COUNT 9.5 10^3/ul (4.8-10.8)
[2016-10-18 06:07] VITALS: BP 98/53; PULSE 64; RESP 18
[2016-10-18 06:09] LABS: CALCIUM 9.1 mg/dl (8.4-10.2); CREATININE 1.02 mg/dl (0.61-1.24); POTASSIUM 3.9 mmol/L (3.5-5.1)
[2016-10-18] MEDS: PANTOPRAZOLE (EC) 40 MG TAB PO SCH (06:09)
[2016-10-18 07:37] VITALS: BP 105/57; RESP 18
[2016-10-18] MEDS: ENOXAPARIN 40 MG/0.4 ML SYG SC SCH (08:45)
--- NOTE | 2016-10-18 18:46 | PN ---
Date/Time of Note Date/Time of Note DATE: 10/18/16 TIME: 18:43 Assessment/Plan VTE Prophylaxis VTE Prophylaxis Intervention: SCD's Lines/Catheters IV Catheter Type (from [facility] Saline Lock Urinary Cath still in place: No Assessment/Plan Assessment/Plan Assessment: Fever post colonoscopy/no evidence of colonic pathology Probable transient bacteremia related to colonoscopy/polypectomy Rule out urinary tract infection Leukocytosis/likely related to above Thickened bladder and mild hydronephrosis on CT Consider urology evaluation History of anxiety/depression/psychiatric illness Asymptomatic? Hypotension/questionable clinical significance Plan: Continue present regimen Complete 7 day antibiotic course GI rivera he appears to be safe for possible discharge Consider urology evaluation Await cultures Subjective 24 Hr Interval Summary Free Text/Dictation Course reviewed with nursing staff Patient interviewed and examined Denies any abdominal pain, tolerating diet without difficulties No further episodes of fever Blood pressure remains in the low range systolic around 100 but the patient is entirely asymptomatic Colonoscopy results were reviewed again with the patient's family a copy of the report was delivered to the Colonoscopy 10/15/2016 IMPRESSION: 1. A 3 mm rectal polyp, ablated. 2. A 6 mm proximal ascending colon polyp snared and retrieved. A 15 mm sessile polyp not endoscopically resectable in the proximal ascending colon, biopsied and localization tattoo applied. Will require surgical excision if adenomatous in nature 3. A 6 mm polyp in the descending colon, snared and retrieved. 4. A 6 mm polyp in the rectum snared and retrieved. 5. Moderate sized internal hemorrhoids. Exam/Review of Systems Vital Signs Vitals Vital Signs Date Time Temp Pulse Resp B/P Pulse Ox O2 Delivery O2 Flow Rate FiO2 10/18/16 07:37 97.8 61 18 105/57 96 10/18/16 06:07 Room Air Intake and Output 10/17/16 10/17/16 10/18/16 15:00 23:00 07:00 Intake Total 500 ml 1680 ml 100 ml Balance 500 ml 1680 ml 100 ml Exam Constitutional: alert, oriented, well developed Psych: nl mood/affect, no complaints Head: atraumatic, normocephalic Eyes: EOMI, PERRL, nl conjunctiva, nl lids, nl sclera ENMT: nl external ears & nose, nl lips & teeth, nl nasal mucosa & septum Neck: non-tender, supple Respiratory: clear to auscultation, normal air movement Cardiovascular: nl pulses, regular rate and rhythm Gastrointestinal: nl liver, spleen, non-tender, soft Musculoskeletal: nl extremities to inspection Extremities: normal pulses Skin: nl turgor, No rash or lesions Lymph: nl lymph nodes Results Result Diagram: 10/18/16 0459 10/18/16 0459 Results 24 hrs Laboratory Tests Test 10/18/16 04:59 White Blood Count 9.5 Red Blood Count 4.23 L Hemoglobin 13.0 L Hematocrit 39.5 L Mean Corpuscular Volume 93.4 Mean Corpuscular Hemoglobin 30.7 Mean Corpuscular Hemoglobin Concent 32.9 Red Cell Distribution Width 13.9 Platelet Count 250 Mean Platelet Volume 10.4 Neutrophils % 48.9 Lymphocytes % 39.4 Monocytes % 8.0 Eosinophils % 2.9 Basophils % 0.4 Nucleated Red Blood Cells % 0.0 Neutrophils # 4.7 Lymphocytes # 3.8 H Monocytes # 0.8 Eosinophils # 0.3 Basophils # 0.0 Nucleated Red Blood Cells # 0.0 Sodium Level 147 H Potassium Level 3.9 Chloride Level 110 Carbon Dioxide Level 28 Anion Gap 13 Blood Urea Nitrogen 8 Creatinine 1.02 Glucose Level 91 Calcium Level 9.1 Medications Medications Current Medications Piperacillin Sod/ Tazobactam Sod (Zosyn 3.375gm/ 100 ml (Pmx)) 100 ml @ 200 mls /hr Q6 IVPB Last administered on 10/18/16 17:45; Admin Dose 200 MLS/HR; Start 10/16/16 at 06:00 Enoxaparin Sodium (Lovenox) 40 mg DAILY SC Last administered on 10/18/16 08:45 ; Admin Dose 40 MG; Start 10/16/16 at 09:00 Ondansetron HCl (Zofran Inj) 4 mg Q6H PRN IV NAUSEA AND/OR VOMITING; Start 10/16 at 05:30 Morphine Sulfate (morphine) 2 mg Q4H PRN IV PAIN; Start 10/16/16 at 05:30 Acetaminophen (Tylenol Tab) 650 mg Q6H PRN PO PAIN AND OR ELEVATED TEMP; Start 10/16/16 at 05:30 Pantoprazole (Protonix Tab) 40 mg DAILY@06 PO Last administered on 10/18/16 06: 09; Admin Dose 40 MG; Start 10/16/16 at 06:00 Olanzapine (Zyprexa) 10 mg HS PO Last administered on 10/17/16t 21:12; Admin Dose 10 MG; Start 10/16/16 at 21:00 ANNIE VALLE MD Oct 18, 2016 18:46
[2016-10-18] MEDS ORDERED: CIPR500T4 PO (18:53)
[2016-10-18] MEDS ORDERED: METR500T PO (18:53)
[2016-10-18 20:06] VITALS: BP 107/70; RESP 18
== END 2016-10-18 20:20 | disposition home or self-care (01) | DRG 864 ==
LOC: E/R 22:12 → MS2 10-16 02:04
PROVIDERS: ADMIT Internal Medicine; ATTEND Internal Medicine
DX: R50.82 Postprocedural fever (principal); N13.30 Unspecified hydronephrosis; D72.829 Elevated white blood cell count, unspecified; E78.5 Hyperlipidemia, unspecified; F17.200 Nicotine dependence, unspecified, uncomplicated; F41.9 Anxiety disorder, unspecified; F32.9 Major depressive disorder, single episode, unspecified; R60.0 Localized edema
CPT/HCPCS: 36415; 71010; 74177; 80048; 80053; 81003; 83605; 84484; 85025; 85610; 85730; 87040; 87086; 93005; 96374; J0696; J1650; J2543; J7030; Q9967